=== PATIENT | male | born 1965 | race American Indian/Alaskan Native ===

== ENCOUNTER 2018-03-19 08:30 | Inpatient (IN) | payer MEDICAID, OTHER ==
[2018-03-19 08:31] VITALS: BMI 31.3
[2018-03-19 10:19] LABS: BASO # 0.1 K/uL (0.0-0.2); BASO % 1.1 % (0.0-2.0); EOS # 0.1 K/uL (0.0-0.7); EOS % 2.6 % (0.0-4.0); LYMPH # 2.6 K/uL (1.0-4.3); LYMPH % 47.6 % (20.0-40.0); MEAN CELL VOLUME 86.4 fL (80.0-94.0); MEAN CORPUSCULAR HGB CONC 33.6 g/dL (33.0-37.0); MEAN PLATELET VOLUME 8.5 fL (7.2-11.7); MONO # 0.4 K/uL (0.0-0.8); MONO % 7.3 % (0.0-10.0); NEUT # 2.3 K/uL (1.8-7.0); NEUT % 41.4 % (50.0-75.0); RBC 4.81 Mil/uL (4.40-5.90); RED CELL DISTRIBUTION WIDTH 13.4 % (11.5-14.5); WHITE BLOOD COUNT 5.5 K/uL (4.8-10.8)
--- NOTE | 2018-03-19 10:26 | RAD ---
HISTORY: alcohol withdrawal COMPARISON: None available. TECHNIQUE: Chest PA and lateral FINDINGS: Examination limited by habitus. LUNGS: No focal consolidation. Please note that chest x-ray has limited sensitivity for the detection of pulmonary masses. PLEURA: No significant pleural effusion identified. No definite pneumothorax . CARDIOVASCULAR: Heart size appears within normal limits. No atherosclerotic calcification present. OSSEOUS STRUCTURES: Degenerative changes of the spine. VISUALIZED UPPER ABDOMEN: Unremarkable. OTHER FINDINGS: None. IMPRESSION: No focal consolidation.
[2018-03-19 10:36] LABS: ALB/GLOB RATIO 1.3 (1.0-2.1); ALBUMIN 4.8 g/dL (3.5-5.0); ALT/SGPT 119 U/L (21-72); AST/SGOT 129 U/L (17-59); BLOOD UREA NITROGEN 10 mg/dL (9-20); CALCIUM 9.4 mg/dl (8.6-10.4); GFR NON-AFRICAN AMERICAN > 60
[2018-03-19 10:38] LABS: URINE BACTERIA RARE (<OCC); URINE BILIRUBIN 1+ (NEGATIVE); URINE BLOOD NEGATIVE (NEGATIVE); URINE CLARITY Clear (Clear); URINE COLOR Amber (YELLOW); URINE GLUCOSE (UA) NORMAL (Normal); URINE LEUKOCYTE ESTERASE NEG Leu/uL (Negative); URINE PROTEIN 2+ mg/dL (NEGATIVE)
[2018-03-19 10:44] LABS: BARBITURATES, UR NEGATIVE (NEGATIVE); BENZODIAZEPINES, UR NEGATIVE (NEGATIVE); OPIATES, UR NEGATIVE (NEGATIVE); PHENCYCLIDINE, UR NEGATIVE (NEGATIVE)
--- NOTE | 2018-03-19 11:13 | C.PDOC ---
History Of Present Illness 52 y/o male presents to the ER requesting detox from ETOH. Patient reports that he drank 1 pint of vodka every morning. Patient reports that his last drink was yesterday.He is complaining of chills and nausea. Denies having fever, vomiting, and abdominal pain. Of note, patient is currently hypertensive and tachycardic in the ER. Time Seen by Provider: 03/19/18 08:53 Chief Complaint (Nursing): Substance Abuse History Per: Patient History/Exam Limitations: no limitations Onset/Duration Of Symptoms: Hrs Current Symptoms Are (Timing): Still Present Severity: Moderate Past Medical History Reviewed: Historical Data, Nursing Documentation, Vital Signs Vital Signs: Last Vital Signs Temp 98.6 F 03/19/18 08:39 Pulse 96 H 03/19/18 08:39 Resp 20 03/19/18 08:39 BP 216/111 H 03/19/18 08:39 Pulse Ox 99 03/19/18 08:39 - Medical History PMH: Asthma Other Surgeries: Hx of surgeries Family History: States: No Known Family Hx - Social History Hx Alcohol Use: Yes Hx Substance Use: No - Immunization History Hx Tetanus Toxoid Vaccination: No Hx Influenza Vaccination: No Hx Pneumococcal Vaccination: No Review Of Systems Except As Marked, All Systems Reviewed And Found Negative. Constitutional: Positive for: Chills. Negative for: Fever Gastrointestinal: Positive for: Nausea. Negative for: Vomiting, Abdominal Pain Physical Exam - Physical Exam Appears: Other (tremulous) Skin: Normal Color, Warm, Dry Head: Atraumatic, Normacephalic Eye(s): bilateral: Normal Inspection Nose: Normal Oral Mucosa: Moist Neck: Supple Chest: Symmetrical Cardiovascular: Rhythm Regular Respiratory: Normal Breath Sounds, No Rales, No Rhonchi, No Wheezing Gastrointestinal/Abdominal: Normal Exam, Soft, No Tenderness, No Guarding, No Rebound Neurological/Psych: Oriented x3, Normal Speech ED Course And Treatment - Laboratory Results Result Diagrams: 03/19/18 10:11 03/19/18 10:17 Lab Results: Total Bilirubin 1.2 mg/dL (0.2-1.3) 03/19/18 10:17 AST 129 U/L (17-59) H 03/19/18 10:17 ALT 119 U/L (21-72) H D 03/19/18 10:17 Alkaline Phosphatase 125 U/L (38-126) 03/19/18 10:17 Total Protein 8.6 g/dL (6.3-8.3) H 03/19/18 10:17 Albumin 4.8 g/dL (3.5-5.0) 03/19/18 10:17 Globulin 3.8 gm/dL (2.2-3.9) 03/19/18 10:17 Albumin/Globulin Ratio 1.3 (1.0-2.1) 03/19/18 10:17 Urine Color Adrianna (YELLOW) 03/19/18 10:11 Urine Clarity Clear (Clear) 03/19/18 10:11 Urine pH 5.0 (5.0-8.0) 03/19/18 10:11 Ur Specific [place] 1.029 (1.003-1.030) 03/19/18 10:11 Urine Protein 2+ mg/dL (NEGATIVE) H 03/19/18 10:11 Urine Glucose (UA) Normal mg/dL (Normal) 03/19/18 10:11 Urine Ketones Negative mg/dL (NEGATIVE) 03/19/18 10:11 Urine Blood Negative (NEGATIVE) 03/19/18 10:11 Urine Nitrate Negative (NEGATIVE) 03/19/18 10:11 Urine Bilirubin 1+ (NEGATIVE) H 03/19/18 10:11 Urine Urobilinogen 4.0 mg/dL (0.2-1.0) 03/19/18 10:11 Ur Leukocyte Esterase Neg Jeri/uL (Negative) 03/19/18 10:11 Urine WBC (Auto) 1 /hpf (0-5) 03/19/18 10:11 Urine RBC (Auto) < 1 /hpf (0-3) 03/19/18 10:11 Urine Bacteria Rare (<OCC) 03/19/18 10:11 ECG: Interpreted By Me, Viewed By Me ECG Rhythm: Sinus Rhythm Interpretation Of ECG: NSR with no ST elevations or depressions Rate From EC O2 Sat by Pulse Oximetry: 99 (RA) Pulse Ox Interpretation: Normal Medical Decision Making Medical Decision Making: Plan: --Labs --UA --EKG --CXR --Ativan IV Disposition - Disposition Disposition: HOSPITALIZED Disposition Time: 13:08 Condition: GUARDED Forms: Kyp (Maltese) - Clinical Impression Clinical Impression: Alcohol use disorder, severe, dependence - Scribe Statement The provider has reviewed the documentation as recorded by the Kye Canseco Provider Attestation: All medical record entries made by the Kye were at my direction and personally dictated by me. I have reviewed the chart and agree that the record accurately reflects my personal performance of the history, physical exam, medical decision making, and the department course for this patient. I have also personally directed, reviewed, and agree with the discharge instructions and d isposition. Decision To Admit - Pt Status Changed To: Hospital Disposition Of: Inpatient - Admit Certification Admit to Inpatient:: After my assessment, the patient will require hospi talization for at least two midnights. This is because of the severity of symptoms shown, intensity of services needed, and/or the medical risk in this patient being treated as an outpatient. - InPatient: Physician Admission Certification: I certify that this patient requires 2 or more midnights of care for the following reason:: needs medical detox - . Bed Request Type: Detox Patient Diagnosis: Alcohol use disorder, severe, dependence
[2018-03-19] MEDS ORDERED: Labetalol 25mg/5ml Syringe IVP STA ×2 (12:12→14:45)
[2018-03-19] MEDS ORDERED: Labetalol 5mg/ml (4ml) ONE (12:30)
[2018-03-19] MEDS ORDERED: Albuterol HFA 90 mcg/actuation (8 g) INH PRN (13:26)
[2018-03-19] MEDS: Multiple Vitamins Tab PO SCH (15:02)
--- NOTE | 2018-03-19 19:46 | PCM.BM ---
<Anna Keyes - Last Filed: 03/19/18 19:44> Treatment Plan Problems - Problems identified on initial assessmt Abnormal Vital Signs Date Initiated: 03/19/18 Time Initiated: 19:45 Assessment reference: NA Status: Active Anxiety Related to Substance Abuse Date Initiated: 03/19/18 Time Initiated: 19:45 Assessment reference: NA Status: Active Knowledge Deficit : Alcohol Abuse Date Initiated: 03/19/18 Time Initiated: 19:45 Assessment reference: NA Status: Active Treatment assets and liabiliti Patient Assests: cooperative, negotiates basic needs, cognitively intact Patient Liabilities: substance abuse, medical problems - Milieu Protocol Maintain good personal hygiene: daily Encourage regular showers, daily Remind patient to perform daily oral care, daily Assist patient to perform ADL's Conduct patient checks and document Observation sheet: Q15 minutes Maintain personal safety: every shift Educate patient to report safety concerns to staff, every shift Monitor environment for contraband/sharps Medication safety: Monitor for expected outcome, potential side effects: every shift, Assess barriers to learning: every shift, Assess readiness for medication education: every shift <Alicia Glass - Last Filed: 03/20/18 19:25> - Diagnosis (1) Alcohol use disorder, severe, dependence Status: Acute Interventions: 03/20/18 19:26 * Assess 7x/week regarding severity of withdrawal * Educate regarding risks, benefits, side effects and alternatives of medications * Use Motivational Interviewing for abstinence * Use CBT for relapse prevention * Medication management for withdrawal symptoms * Encourage medication assisted treatment * <Yanelis De Leon - Last Filed: 03/22/18 13:07> Family Contact Family involvement: Elizabeth/SO not involved - Goals for Treatment Patient goals for treatment: Complete detox and transition to IOP. Discharge/Continuing Care - Education Needs Education Needs: Patient Medication, Patient Diagnosis/Disease Process, Patient Coping Skills, Patient Anger Management skills, Patient Placement options, Patient Community resources - Discharge Discharge Criteria: No longer exhibiting s/s of withdrawal, Reduction of target symptoms Discharge to:: Home, With Family - Treatment Team Participation Patient/Family/SO Statement: 03/22/18 13:06 "I wanna go to outpatient after this..." Discussed with Family/SO: No Was Patient/Family/SO present at Treatment Team Meeting: Yes
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
[2018-03-20] MEDS: Magnesium Oxide 400 mg Tab UD PO SCH ×4 (05:51→17:34)
[2018-03-20 08:17] LABS: BASO % 0.7 % (0.0-2.0); EOS # 0.1 K/uL (0.0-0.7); EOS % 3.8 % (0.0-4.0); HEMOGLOBIN 12.4 g/dL (12.0-18.0); LYMPH # 1.3 K/uL (1.0-4.3); LYMPH % 37.7 % (20.0-40.0); MEAN CORPUSCULAR HGB CONC 33.7 g/dL (33.0-37.0); MEAN PLATELET VOLUME 8.7 fL (7.2-11.7); MONO # 0.2 K/uL (0.0-0.8); MONO % 6.4 % (0.0-10.0); NEUT # 1.8 K/uL (1.8-7.0); NEUT % 51.4 % (50.0-75.0); NRBC % 0.1 % (0.0-2.0); RBC 4.28 Mil/uL (4.40-5.90); RED CELL DISTRIBUTION WIDTH 13.4 % (11.5-14.5); WHITE BLOOD COUNT 3.6 K/uL (4.8-10.8)
[2018-03-20 08:40] LABS: ALB/GLOB RATIO 1.4 (1.0-2.1); ALBUMIN 3.9 g/dL (3.5-5.0); ALT/SGPT 102 U/L (21-72); AST/SGOT 153 U/L (17-59); BLOOD UREA NITROGEN 10 mg/dL (9-20); CALCIUM 8.6 mg/dl (8.6-10.4); GFR NON-AFRICAN AMERICAN > 60
[2018-03-20 08:54] LABS: HEPATITIS B SURFACE AG Negative (NEGATIVE)
[2018-03-20 09:02] LABS: HEPATITIS A IGM NEGATIVE (NEGATIVE); HEPATITIS B CORE AB NEGATIVE (NEGATIVE)
[2018-03-20 09:11] LABS: HEPATITIS C ANTIBODY NEGATIVE (NEGATIVE)
[2018-03-20] MEDS: Metoprolol Succinate 50 mg XL Tab PO SCH (10:20)
[2018-03-20] MEDS: Multiple Vitamins Tab PO SCH (10:20)
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
--- NOTE | 2018-03-20 12:14 | US ---
Abdominal ultrasound HISTORY: Transaminitis. Comparison: None available. Technique: Real-time sonography was performed through the abdomen. Findings: Liver: Prominent measuring 22.2 centimeters in length. Increased echogenicity of the hepatic parenchymal cortex suggestive for fatty infiltration versus hepatic parenchymal disease. Clinical correlation. Gallbladder: No calculi or sludge. Normal wall thickness of 2 millimeters. Negative sonographic Delgado's sign. Common bile duct measures 5 millimeters, within normal limits. Limited visualization of the pancreas. Spleen measures 12.0 centimeters in length, within normal limits. Limited visualization of the aorta and IVC. Visualized portions grossly preserved. Right kidney: 12.3 x 5.4 x 5.9 centimeters. No calculi or hydronephrosis. Left Kidney: 11.6 x 5.4 x 5.1 centimeters. No calculi or hydronephrosis. Impression: 1. Enlarged echogenic liver measuring up to 22.2 centimeters in length with associated increased echogenicity of the hepatic parenchymal cortex suggestive for fatty infiltration versus hepatic parenchymal disease. Clinical correlation. 2. Limited visualization of the pancreas, aorta, and IVC.
--- NOTE | 2018-03-20 17:34 | CARD ---
APPROVED REPORT Date of service: 03/20/2018 EXAM: Two-dimensional and M-mode echocardiogram with Doppler and color Doppler. Other Information Quality : GoodRhythm : INDICATION r/o cardiomyopthy 2D DIMENSIONS IVSd1.2 (0.7-1.1cm)LVDd4.4 (3.9-5.9cm) PWd1.3 (0.7-1.1cm)LA [id number] (18-58mL) LVDs2.7 (2.5-4.0cm)FS (%) 39.0 % LVEF (%)69.6 (>50%)LVEF (Rhodes's)56.35 % M-Mode DIMENSIONS Left Atrium (MM)3.82 (2.5-4.0cm)IVSd1.05 (0.7-1.1cm) Aortic Root3.84 (2.2-3.7cm)LVDd4.80 (4.0-5.6cm) Aortic Cusp Exc.2.43 (1.5-2.0cm)PWd1.07 (0.7-1.1cm) FS (%) 38 %LVDs2.99 (2.0-3.8cm) LVEF (%)68 (>50%) Mitral Valve MV E Wsfdjoec75.4cm/sMV A Syhsfefv66.3cm/sE/A ratio0.5 TDI Lateral E' Peak V6.80cm/sMedial E' Peak V4.90cm/sE/Lateral E'7.7 E/Medial E'10.7 LEFT VENTRICLE The left ventricle is normal size. There is normal left ventricular wall thickness. The left ventricular systolic function is normal. The left ventricular ejection fraction is within the normal range. There is normal LV segmental wall motion. Transmitral Doppler flow pattern is Grade I-abnormal relaxation pattern. Normal left atrial pressure. RIGHT VENTRICLE The right ventricle is normal size. The right ventricular systolic function is normal. ATRIA The left atrium size is normal. The right atrium size is normal. The interatrial septum is intact with no evidence for an atrial septal defect. AORTIC VALVE The aortic valve is normal in structure. There is trace to mild aortic regurgitation. There is no aortic valvular stenosis. MITRAL VALVE The mitral valve is normal in structure. There is no mitral valve regurgitation noted. TRICUSPID VALVE The tricuspid valve is normal in structure. There is no tricuspid valve regurgitation noted. PULMONIC VALVE The pulmonary valve is normal in structure. There is trace to mild pulmonic valvular regurgitation. GREAT VESSELS The aortic root is normal in size. The IVC was well not visualized. PERICARDIAL EFFUSION There is no pericardial effusion. <Conclusion> The left ventricular systolic function is normal. There is normal LV segmental wall motion. Grade I diastolic dysfunction. Normal left atrial pressure. The right ventricular systolic function is normal. There is trace to mild aortic regurgitation. The aortic valve is normal in structure. There is no pericardial effusion.
--- NOTE | 2018-03-20 17:48 | CP.PCM.PN ---
Subjective - Date & Time of Evaluation Date of Evaluation: 03/20/18 Time of Evaluation: 17:45 - Subjective Subjective: PGY-1 Medicine Progress Note for Dr. Amaya's service S/E at bedside. Mild tremor noted in exam. Denies fevers, chills, chest pain, sob, n/v, constipation or diarrhea, dysuria, and palpitations. Objective - Vital Signs/Intake and Output Vital Signs (last 24 hours): Temp Pulse Resp BP Pulse Ox 97.7 F 85 18 182/110 H 96 03/20/18 16:00 03/20/18 16:00 03/20/18 16:00 03/20/18 16:00 03/20/18 16:00 - Medications Medications: Current Medications Albuterol (Ventolin Hfa 90 Mcg/Actuation (8 G)) 1 puff INH RQ4 PRN PRN Reason: Shortness of Breath Clonidine HCl (Catapres) 0.1 mg PO Q4H PRN PRN Reason: Symptoms of alcohol withdrawl Last Admin: 03/20/18 16:16 Dose: 0.1 mg Folic Acid (Folic Acid) 1 mg PO DAILY [facility] Last Admin: 03/20/18 10:20 Dose: 1 mg Gabapentin (Neurontin) 300 mg PO BID [facility] Last Admin: 03/20/18 17:35 Dose: 300 mg Hydroxyzine HCl (Atarax) 50 mg PO Q6H PRN PRN Reason: Anxiety Last Admin: 03/19/18 19:14 Dose: 50 mg Ibuprofen (Motrin Tab) 400 mg PO Q6H PRN PRN Reason: Pain, moderate (4-7) Last Admin: 03/19/18 19:14 Dose: 400 mg Lorazepam (Ativan) 1 mg PO Q4H PRN PRN Reason: Symptoms of alcohol withdrawl Last Admin: 03/20/18 05:41 Dose: 1 mg Lorazepam (Ativan) 2 mg PO Q6H [facility]; Taper Stop: 03/24/18 15:59 Last Admin: 03/20/18 16:16 Dose: 2 mg Magnesium Oxide (Mag-Ox) 800 mg PO TID [facility] Last Admin: 03/20/18 17:34 Dose: 800 mg Metoprolol Succinate (Toprol Xl) 50 mg PO DAILY [facility] Last Admin: 03/20/18 10:20 Dose: 50 mg Multivitamins (Hexavitamin) 1 tab PO DAILY [facility] Last Admin: 03/20/18 10:20 Dose: 1 tab Thiamine HCl (Vitamin B1 Tab) 100 mg PO DAILY [facility] Last Admin: 03/20/18 10:20 Dose: 100 mg Topiramate (Topamax) 50 mg PO BID [facility] Last Admin: 03/20/18 17:34 Dose: 50 mg Trazodone HCl (Desyrel) 50 mg PO HS PRN PRN Reason: Insomnia - Labs Labs: 03/20/18 07:58 03/20/18 07:58 - Additional Findings Additional findings: - Constitutional Appears: Non-toxic, No Acute Distress - Head Exam Head Exam: ATRAUMATIC, NORMAL INSPECTION - Eye Exam Eye Exam: EOMI, Normal appearance, PERRL - ENT Exam ENT Exam: Mucous Membranes Moist - Neck Exam Neck exam: Positive for: Normal Inspection - Respiratory Exam Respiratory Exam: Clear to Auscultation Bilateral. absent: Decreased Breath Sounds, Rales, Rhonchi, Wheezes - Cardiovascular Exam Cardiovascular Exam: REGULAR RHYTHM, +S1, +S2 (more prominent s2) - GI/Abdominal Exam GI & Abdominal Exam: Normal Bowel Sounds, Soft (obese). absent: Distended, Rebound, Rigid, Tenderness - Extremities Exam Extremities exam: Positive for: normal inspection, pedal pulses present. Negat katalina for: calf tenderness Additional comments: (+) tremors on outstretched hands and legs - Neurological Exam Additional comments: AAOx3 5/5 strength in bilateral upper and lower extremities, Normal babinsky reflex - Psychiatric Exam Psychiatric exam: Normal Affect - Skin Skin Exam: Dry, Normal Color, Warm Assessment and Plan - Assessment and Plan (Free Text) Assessment: EtOH dependence, currently in detox EtOH<10 on admission, Utox is negative Continue management as per Psychiatry Continue Folic acid, multivitamins, thiamine HTN crisis likely 2/2 MIGDALIA and noncompliance and etoh withdrawal toprol 50mg po daily pending sale to [facility] Hydralazine 25mg po tid PRN EF 68 %; normal LV function; grade 1 diastolic dysfunction Transaminitis, possibly due to alcohol abuse, r/o hepatitis or hepatic lesion AST/ALT/ALP is 129/119/125 on admission Hep panel negative Abdomen Ultrasound- enlarged echogenic liver measuring up to 22.2 cms in length w/ associated increased echogenicity of the hepatic parenchymal cortex suggestive for fatty infiltration versus hepatic parenchymal disease Hypomagnesemia, likely due to alcohol abuse Mg is 1.4 Magnesium oxide 800 mg PO TID x3 days Suspect obstructive sleep apnea Pt has increased neck circumference, and is morbidly obese Pt noted to be snoring on exam Would benefit from outpatient workup Case d/w Dr. Cely Ely PGY1
[2018-03-21 08:19] LABS: BASO % 0.9 % (0.0-2.0); EOS # 0.2 K/uL (0.0-0.7); EOS % 4.2 % (0.0-4.0); HEMOGLOBIN 12.9 g/dL (12.0-18.0); LYMPH # 1.6 K/uL (1.0-4.3); LYMPH % 43.9 % (20.0-40.0); MEAN CELL VOLUME 86.8 fL (80.0-94.0); MEAN CORPUSCULAR HEMOGLOBIN 29.3 pg (27.0-31.0); MEAN CORPUSCULAR HGB CONC 33.7 g/dL (33.0-37.0); MEAN PLATELET VOLUME 8.9 fL (7.2-11.7); MONO # 0.3 K/uL (0.0-0.8); MONO % 7.5 % (0.0-10.0); NEUT # 1.6 K/uL (1.8-7.0); NEUT % 43.5 % (50.0-75.0); NRBC % 0.1 % (0.0-2.0); RBC 4.42 Mil/uL (4.40-5.90); RED CELL DISTRIBUTION WIDTH 13.3 % (11.5-14.5); WHITE BLOOD COUNT 3.7 K/uL (4.8-10.8)
[2018-03-21 08:33] LABS: ALB/GLOB RATIO 1.3 (1.0-2.1); ALT/SGPT 91 U/L (21-72); AST/SGOT 102 U/L (17-59); BLOOD UREA NITROGEN 10 mg/dL (9-20); CALCIUM 9.1 mg/dl (8.6-10.4); GFR NON-AFRICAN AMERICAN > 60
[2018-03-21] MEDS: Multiple Vitamins Tab PO SCH (10:12)
[2018-03-21] MEDS: Metoprolol Succinate 50 mg XL Tab PO SCH (10:12)
[2018-03-21] MEDS: Magnesium Oxide 400 mg Tab UD PO SCH ×3 (10:13→17:39)
--- NOTE | 2018-03-21 13:55 | CP.PCM.PN ---
<Giovanny Ely - Last Filed: 03/21/18 17:07> Subjective - Date & Time of Evaluation Date of Evaluation: 03/21/18 Time of Evaluation: 13:49 - Subjective Subjective: PGY-1 Medicine Progress Note for Dr. Parmar's service S/E at bedside. Offers no acute complaints. Denies fevers, chills, chest pain, sob, n/v, constipation or diarrhea, and dysuria. Objective - Vital Signs/Intake and Output Vital Signs (last 24 hours): Temp Pulse Resp BP Pulse Ox 97.6 F 71 19 175/98 H 97 03/21/18 08:00 03/21/18 08:00 03/21/18 08:00 03/21/18 08:00 03/21/18 08:00 - Medications Medications: Current Medications Albuterol (Ventolin Hfa 90 Mcg/Actuation (8 G)) 1 puff INH RQ4 PRN PRN Reason: Shortness of Breath Clonidine HCl (Catapres) 0.1 mg PO Q4H PRN PRN Reason: Symptoms of alcohol withdrawl Last Admin: 03/21/18 06:19 Dose: 0.1 mg Folic Acid (Folic Acid) 1 mg PO DAILY [facility]IT[facility] Last Admin: 03/21/18 10:13 Dose: 1 mg Gabapentin (Neurontin) 300 mg PO BID [facility] Last Admin: 03/21/18 10:12 Dose: 300 mg Hydralazine HCl (Apresoline) 25 mg PO TID PRN PRN Reason: SBP>160 Last Admin: 03/21/18 08:04 Dose: 25 mg Hydroxyzine HCl (Atarax) 50 mg PO Q6H PRN PRN Reason: Anxiety Last Admin: 03/20/18 18:31 Dose: 50 mg Ibuprofen (Motrin Tab) 400 mg PO Q6H PRN PRN Reason: Pain, moderate (4-7) Last Admin: 03/20/18 18:31 Dose: 400 mg Lorazepam (Ativan) 1 mg PO Q4H PRN PRN Reason: Symptoms of alcohol withdrawl Last Admin: 03/21/18 06:19 Dose: 1 mg Lorazepam (Ativan) 2 mg PO Q6H [facility]; Taper Stop: 03/24/18 15:59 Last Admin: 03/21/18 10:13 Dose: 2 mg Magnesium Oxide (Mag-Ox) 800 mg PO TID ON [facility] OF [facility] Last Admin: 03/21/18 10:13 Dose: 800 mg Metoprolol Succinate (Toprol Xl) 50 mg PO DAILY [facility] Last Admin: 03/21/18 10:12 Dose: 50 mg Multivitamins (Hexavitamin) 1 tab PO DAILY [facility] Last Admin: 03/21/18 10:12 Dose: 1 tab Thiamine HCl (Vitamin B1 Tab) 100 mg PO DAILY [facility] Last Admin: 03/21/18 10:13 Dose: 100 mg Topiramate (Topamax) 50 mg PO BID [facility] Last Admin: 03/21/18 10:12 Dose: 50 mg Trazodone HCl (Desyrel) 50 mg PO HS PRN PRN Reason: Insomnia - Labs Labs: 03/21/18 08:06 03/21/18 08:06 - Constitutional Appears: Non-toxic, No Acute Distress - Head Exam Head Exam: NORMAL INSPECTION, NORMOCEPHALIC - Eye Exam Eye Exam: EOMI, Normal appearance. absent: Nystagmus, Scleral icterus - ENT Exam ENT Exam: Mucous Membranes Moist - Respiratory Exam Respiratory Exam: Clear to Ausculation Bilateral, NORMAL BREATHING PATTERN. absent: Rales, Rhonchi, Wheezes - Cardiovascular Exam Cardiovascular Exam: REGULAR RHYTHM, +S1, +S2. absent: Tachycardia - GI/Abdominal Exam GI & Abdominal Exam: Soft, Normal Bowel Sounds. absent: Distended, Firm, Guarding, Rigid, Tenderness - Extremities Exam Extremities Exam: Normal Inspection. absent: Calf Tenderness, Pedal Edema - Neurological Exam Neurological Exam: Alert, Awake, Oriented x3 - Psychiatric Exam Psychiatric exam: Normal Affect, Normal Mood - Skin Skin Exam: Dry, Intact, Normal Color Assessment and Plan - Assessment and Plan (Free Text) Assessment: EtOH dependence, currently in detox EtOH<10 on admission, Utox is negative Continue management as per Psychiatry Continue Folic acid, multivitamins, thiamine HTN crisis likely 2/2 MIGDALIA and noncompliance and etoh withdrawal toprol 50mg po daily [facility] Hydralazine 25mg po tid [facility] EF 68 %; normal LV function; grade 1 diastolic dysfunction Transaminitis, possibly due to alcohol abuse, r/o hepatitis or hepatic lesion AST/ALT/ALP is 129/119/125 on admission Hep panel negative Abdomen Ultrasound- enlarged echogenic liver measuring up to 22.2 cms in length w/ associated increased echogenicity of the hepatic parenchymal cortex suggestive for fatty infiltration versus hepatic parenchymal disease Hypomagnesemia, likely due to alcohol abuse Mg is 1.4 Magnesium oxide 800 mg PO TID x3 days Suspect obstructive sleep apnea Pt has increased neck circumference, and is morbidly obese Pt noted to be snoring on exam Would benefit from outpatient workup We will sign off the case at this point. Reconsult if necessary. A script was printed for discharge of metoprolol. Case d/w Dr. Agata Ely PGY1 <Ramsey Parmar H - Last Filed: 03/21/18 17:21> Objective - Vital Signs/Intake and Output Vital Signs (last 24 hours): Temp Pulse Resp BP Pulse Ox 97.6 F 80 18 130/78 99 03/21/18 16:54 03/21/18 16:54 03/21/18 16:54 03/21/18 16:54 03/21/18 16:54 - Medications Medications: Current Medications Albuterol (Ventolin Hfa 90 Mcg/Actuation (8 G)) 1 puff INH RQ4 PRN PRN Reason: Shortness of Breath Clonidine HCl (Catapres) 0.1 mg PO Q4H PRN PRN Reason: Symptoms of alcohol withdrawl Last Admin: 03/21/18 06:19 Dose: 0.1 mg Escitalopram Oxalate (Lexapro) 5 mg PO QPM ON [facility] Folic Acid (Folic Acid) 1 mg PO DAILY [facility] Last Admin: 03/21/18 10:13 Dose: 1 mg Gabapentin (Neurontin) 300 mg PO BID [facility] Last Admin: 03/21/18 10:12 Dose: 300 mg Hydralazine HCl (Apresoline) 25 mg PO TID [facility] Last Admin: 03/21/18 14:22 Dose: 25 mg Hydroxyzine HCl (Atarax) 50 mg PO Q6H PRN PRN Reason: Anxiety Last Admin: 03/20/18 18:31 Dose: 50 mg Ibuprofen (Motrin Tab) 400 mg PO Q6H PRN PRN Reason: Pain, moderate (4-7) Last Admin: 03/20/18 18:31 Dose: 400 mg Lorazepam (Ativan) 1 mg PO Q4H PRN PRN Reason: Symptoms of alcohol withdrawl Last Admin: 03/21/18 06:19 Dose: 1 mg Lorazepam (Ativan) 2 mg PO Q8H [facility]; Taper Stop: 03/24/18 15:59 Last Admin: 03/21/18 10:13 Dose: 2 mg Magnesium Oxide (Mag-Ox) 800 mg PO TID [facility] Last Admin: 03/21/18 14:22 Dose: 800 mg Metoprolol Succinate (Toprol Xl) 50 mg PO DAILY [facility] Last Admin: 03/21/18 10:12 Dose: 50 mg Multivitamins (Hexavitamin) 1 tab PO DAILY [facility] Last Admin: 03/21/18 10:12 Dose: 1 tab Thiamine HCl (Vitamin B1 Tab) 100 mg PO DAILY [facility] Last Admin: 03/21/18 10:13 Dose: 100 mg Topiramate (Topamax) 50 mg PO BID [facility] Last Admin: 03/21/18 10:12 Dose: 50 mg Trazodone HCl (Desyrel) 50 mg PO HS PRN PRN Reason: Insomnia - Labs Labs: 03/21/18 08:06 03/21/18 08:06 Attending/Attestation - Attestation I have personally seen and examined this patient.: Yes I have fully participated in the care of the patient.: Yes I have reviewed all pertinent clinical information, including history, physical exam and plan: Yes Notes (Text): 03/21/18 17:11 Medical attending: Patient was seen and examined by me, agree with the above note by the resident The patient was not in any acute distress - he was watching television in recreation room. The patient's BP was still somewhat high however much less than previous. He is currently on a tapering ativan protocol with PRN ativan. He also also reciving BB and Hydralazine as well Ramsey Parmar
--- NOTE | 2018-03-21 14:21 | CARD ---
APPROVED REPORT Date of service: 03/19/2018 EKG Measurement Heart [id number] <Conclusion> Normal sinus rhythm Possible Left atrial enlargement Nonspecific T wave abnormality Abnormal ECG
--- NOTE | 2018-03-21 15:39 | PCM.PYCHPN ---
Psychiatric Progress Note - Psychiatric Progress Note Patient seen today, length of contact: 16 min Patient Chief Complaint: "I am anxious" Problems Identified/Issues Discussed: The pt is seen, chart reviewed, case discussed with staff. The pt is compliant with medications and reports no side-effects. Symptoms are improving but needs more time to stabilize. Pt attends groups and activities. Support given, psycho-education provided. After care discussed. Medication Change: Yes (detox changes daily) Medical Record Reviewed: Yes Mental Status Examination - Cognitive Function Orientation: Person, Place, Situation, Time Memory: Intact Attention: WNL Concentration: WNL Association: WNL Fund of Knowledge: WNL - Mood Mood: Depressed - Affect Affect: Broad - Speech Speech: Appropriate - Formal Thought Process Formal Thought Process: No Impairment - Suicidal Ideation Suicidal Ideation: No - Homicidal Ideation Homicidal Ideation: No Goal/Treatment Plan - Goal/Treatment Plan Need for Continued Stay: Discharge may exacerbated symptoms, Severe functional impairment Progress Toward Problem(s) and Goals/Treatment Plan: Taper with Ativan Gabapentin for augmentation Lexapro for depression and anxiety As needed medications All risks, benefits and alternatives of the meds discussed, and the pt agreed and understood. Attend groups and activities Supportive therapy and psychoeducation [place] for abstinence CBT for relapse prevention Encourage MAT Refer to rehab or IOP, and self-help groups Teach healthy lifestyle methods, i.e. diet, exercise, meditation Smoking cessation with [place] Nicotine patch if needed Estimated Date of D/C: 03/24/18
--- NOTE | 2018-03-21 17:07 | CP.PCM.PCO ---
Physician Communication Note - Physician Communication Note Physician Communication Note: please put metoprolol script in chart for d/c planning
[2018-03-22 08:57] LABS: BASO # 0.1 K/uL (0.0-0.2); BASO % 1.2 % (0.0-2.0); EOS # 0.2 K/uL (0.0-0.7); EOS % 3.1 % (0.0-4.0); HEMOGLOBIN 14.3 g/dL (12.0-18.0); LYMPH # 2.2 K/uL (1.0-4.3); LYMPH % 38.4 % (20.0-40.0); MEAN CELL VOLUME 87.2 fL (80.0-94.0); MEAN CORPUSCULAR HEMOGLOBIN 29.1 pg (27.0-31.0); MEAN CORPUSCULAR HGB CONC 33.4 g/dL (33.0-37.0); MEAN PLATELET VOLUME 8.8 fL (7.2-11.7); MONO # 0.4 K/uL (0.0-0.8); NEUT # 2.9 K/uL (1.8-7.0); NEUT % 50.3 % (50.0-75.0); NRBC % 0.1 % (0.0-2.0); RBC 4.91 Mil/uL (4.40-5.90); RED CELL DISTRIBUTION WIDTH 13.3 % (11.5-14.5)
[2018-03-22 09:01] LABS: WHITE BLOOD COUNT 5.8 K/uL (4.8-10.8)
[2018-03-22 09:14] LABS: ALB/GLOB RATIO 1.3 (1.0-2.1); ALBUMIN 4.8 g/dL (3.5-5.0); ALT/SGPT 108 U/L (21-72); AST/SGOT 137 U/L (17-59); BLOOD UREA NITROGEN 11 mg/dL (9-20); CALCIUM 9.7 mg/dl (8.6-10.4); GFR NON-AFRICAN AMERICAN > 60
[2018-03-22] MEDS: Multiple Vitamins Tab PO SCH (10:00)
[2018-03-22] MEDS: Metoprolol Succinate 50 mg XL Tab PO SCH (10:01)
--- NOTE | 2018-03-22 12:30 | PCM.PYCHPN ---
Psychiatric Progress Note - Psychiatric Progress Note Patient seen today, length of contact: 18 minutes Patient Chief Complaint: "I need to go back to work" Problems Identified/Issues Discussed: The pt is seen, chart reviewed, case discussed with staff. Support and psychoeducation given, CBT and [place] used briefly No new symptoms reported, improving slowly and needs more time No SEs from medications, risks discussed. After care discussed and he agreed to stay until tomorrow and he is warned about risks of leaving early. Medication Change: Yes (detox changes daily) Medical Record Reviewed: Yes Mental Status Examination - Cognitive Function Orientation: Person, Place, Situation, Time Memory: Intact Attention: WNL Concentration: WNL Association: WNL Fund of Knowledge: WNL - Mood Mood: Depressed - Affect Affect: Broad - Speech Speech: Appropriate - Formal Thought Process Formal Thought Process: No Impairment - Suicidal Ideation Suicidal Ideation: No - Homicidal Ideation Homicidal Ideation: No Goal/Treatment Plan - Goal/Treatment Plan Need for Continued Stay: Discharge may exacerbated symptoms, Severe functional impairment Progress Toward Problem(s) and Goals/Treatment Plan: Taper with Ativan Gabapentin for augmentation Lexapro for depression and anxiety As needed medications All risks, benefits and alternatives of the meds discussed, and the pt agreed and understood. Attend groups and activities Supportive therapy and psychoeducation [place] for abstinence CBT for relapse prevention Encourage MAT Refer to rehab or IOP, and self-help groups Teach healthy lifestyle methods, i.e. diet, exercise, meditation Smoking cessation with [place] Nicotine patch if needed Estimated Date of D/C: 03/24/18
[2018-03-22 20:32] VITALS: O2SAT 99
[2018-03-23 05:57] VITALS: TEMP 98
[2018-03-23 07:25] LABS: BASO % 0.7 % (0.0-2.0); EOS # 0.2 K/uL (0.0-0.7); EOS % 3.8 % (0.0-4.0); HEMOGLOBIN 13.7 g/dL (12.0-18.0); LYMPH # 2.4 K/uL (1.0-4.3); LYMPH % 45.5 % (20.0-40.0); MEAN CELL VOLUME 86.8 fL (80.0-94.0); MEAN CORPUSCULAR HEMOGLOBIN 28.9 pg (27.0-31.0); MEAN CORPUSCULAR HGB CONC 33.3 g/dL (33.0-37.0); MEAN PLATELET VOLUME 8.9 fL (7.2-11.7); MONO # 0.4 K/uL (0.0-0.8); MONO % 7.3 % (0.0-10.0); NEUT # 2.3 K/uL (1.8-7.0); NEUT % 42.7 % (50.0-75.0); NRBC % 0.1 % (0.0-2.0); RBC 4.73 Mil/uL (4.40-5.90); RED CELL DISTRIBUTION WIDTH 13.5 % (11.5-14.5); WHITE BLOOD COUNT 5.3 K/uL (4.8-10.8)
[2018-03-23 07:56] LABS: ALB/GLOB RATIO 1.4 (1.0-2.1); ALBUMIN 4.4 g/dL (3.5-5.0); ALT/SGPT 110 U/L (21-72); AST/SGOT 144 U/L (17-59); BLOOD UREA NITROGEN 14 mg/dL (9-20); CALCIUM 9.4 mg/dl (8.6-10.4); GFR NON-AFRICAN AMERICAN > 60
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
[2018-03-23] MEDS: Metoprolol Succinate 50 mg XL Tab PO SCH (09:14)
[2018-03-23] MEDS: Multiple Vitamins Tab PO SCH (09:14)
[2018-03-23 09:30] VITALS: RESP 20
[2018-03-23 11:01] VITALS: BP 130/87; PULSE 90
== END 2018-03-23 11:10 | disposition home or self-care (01) | DRG 772 ==
LOC: C.ER 08:30 → C.7D 13:10
PROVIDERS: ADMIT Psychiatry & Neurology Psychiatry; ATTEND Psychiatry & Neurology Psychiatry
PROC: HZ2ZZZZ Detoxification Services for Substance Abuse Treatment (ICD-10-PCS; principal; 2018-03-19)
PROC: HZ42ZZZ Group Counseling for Substance Abuse Treatment, Cognitive-Behavioral (ICD-10-PCS; 2018-03-19)
PROC: HZ52ZZZ Individual Psychotherapy for Substance Abuse Treatment, Cognitive-Behavioral (ICD-10-PCS; 2018-03-19)
PROC: HZ59ZZZ Individual Psychotherapy for Substance Abuse Treatment, Supportive (ICD-10-PCS; 2018-03-19)
PROC: HZ56ZZZ Individual Psychotherapy for Substance Abuse Treatment, Psychoeducation (ICD-10-PCS; 2018-03-19)
PROC: HZ46ZZZ Group Counseling for Substance Abuse Treatment, Psychoeducation (ICD-10-PCS; 2018-03-19)
PROC: GZHZZZZ Group Psychotherapy (ICD-10-PCS; 2018-03-19)
PROC: GZ58ZZZ Individual Psychotherapy, Cognitive-Behavioral (ICD-10-PCS; 2018-03-19)
PROC: GZ56ZZZ Individual Psychotherapy, Supportive (ICD-10-PCS; 2018-03-19)
DX: F10.230 Alcohol dependence with withdrawal, uncomplicated (principal); F32.2 Major depressive disorder, single episode, severe without psychotic features; E83.42 Hypomagnesemia; E66.01 Morbid (severe) obesity due to excess calories; Y90.0 Blood alcohol level of less than 20 mg/100 ml; F43.10 Post-traumatic stress disorder, unspecified; I10 Essential (primary) hypertension; I16.9 Hypertensive crisis, unspecified; J45.909 Unspecified asthma, uncomplicated; G47.33 Obstructive sleep apnea (adult) (pediatric); Z91.19 Patient's noncompliance with other medical treatment and regimen; F41.9 Anxiety disorder, unspecified; R25.1 Tremor, unspecified